=== PATIENT | female | born 1950 | race Caucasian/White ===

== ENCOUNTER 2023-07-26 09:26 | Inpatient (IN) | payer MEDICARE, OTHER ==
[~2023-07-26] VITALS: Ht 152.4 cm; Wt 48.0 kg
[2023-07-26] VITALS (22 sets, daily range): BP systolic 107–178; BP diastolic 48–130
[~2023-07-26 09:26] MED LIST: ALL DAY ALLG10 M1 PO; ASMANEX 120220 MCG IN; COMBIVENT IN; EVISTA60 MG PO; LOSARTAN POT25 MG PO; NEXIUM40 M1 PO; RHINOCORT; SINGULAIR PO
[2023-07-26 10:09] LABS: BASO% 0.2 % (0-3); HEMATOCRIT 38.7 % (37.0-47.0); HEMOGLOBIN 12.8 g/dl (12.0-16.0); IMMATURE GRANULOCYTES 0.2 % (0.0-5.0); LYMPH% 7.5 % (15-41); MEAN CELL VOLUME 90.8 fL CALC (80.0-100.0); MEAN CORPUSCULAR HGB CONC 33.1 g/dL CAL (32.0-36.0); MONO% 6.8 % (2-13); NEUT# 10.96 thou/uL (2.00-7.15); NEUT% 85.3 % (42-76); RED BLOOD COUNT 4.26 mill/uL (4.20-5.60)
[2023-07-26 10:18] LABS: ALBUMIN 4.1 g/dL (3.2-5.0); ALKALINE PHOSPHATASE 142 u/l (38-126); ANION GAP 15 (6-22 (CALC)); BILIRUBIN, TOTAL 0.6 mg/dL (0.02-1.3); BUN 7 mg/dL (8-23); BUN/CREATININE RATIO 13 (12-20 (CALC)); CARBON DIOXIDE 25 mmol/l (22-30); CHLORIDE 94 mmol/l (95-108); CREATININE 0.6 mg/dL (0.5-1.0); GFR FOR AFR.AMER. > 60 ML/MIN (>=60 (CALC)); GFR OTHER RACES > 60 ML/MIN (>=60 (CALC)); POTASSIUM 3.5 mmol/l (3.5-5.1); SGOT/AST 36 u/l (9-36); SODIUM 131 mmol/l (137-146); TOTAL PROTEIN 8.4 g/dL (6.3-8.2)
[2023-07-26 10:35] LABS: LIPASE 58 u/l (23-300)
[2023-07-26] MEDS ORDERED: LEXAPRO10 MG PO (10:36)
[2023-07-26 11:30] LABS: URINE BILIRUBIN - DIPSTICK Negative (NEGATIVE); URINE BLOOD DIPSTICK Trace-intact (NEGATIVE); URINE GLUCOSE - DIPSTICK Negative (NEGATIVE); URINE KETONE 15 mg/dL (NEGATIVE); URINE LEUK ESTERASE Trace (NEGATIVE); URINE NITRITE - DIPSTICK Negative (Negative); URINE PROTEIN - DIPSTICK 100 mg/dL (NEG-TRACE); URINE SPECIFIC GRAVITY 1.015
[2023-07-26 11:31] LABS: URINE COLOR Yellow
[2023-07-26 11:40] LABS: URINE BACTERIA RARE hpf; URINE HYALINE CAST FEW lpf (NONE-RARE); URINE MUCUS FEW hpf (NONE-FEW); URINE RBC 0-2 RBC/hpf (0-5); URINE SQUAMOUS EPITHELIAL CELL FEW EPI/hpf (0-FEW); URINE WBC 0-2 WBC/hpf (0-5)
[2023-07-27] VITALS (16 sets, daily range): BP systolic 114–167; BP diastolic 54–98
[2023-07-27 07:06] LABS: BASO% 0.2 % (0-3); EOS% 0.4 % (0-8); IMMATURE GRANULOCYTES 0.2 % (0.0-5.0); MEAN CELL VOLUME 92.2 fL CALC (80.0-100.0); MEAN CORPUSCULAR HGB 30.9 pG CALC (26.0-32.0); MEAN CORPUSCULAR HGB CONC 33.5 g/dL CAL (32.0-36.0); MONO% 6.9 % (2-13); NEUT# 6.8 thou/uL (2.00-7.15); NEUT% 81.3 % (42-76); RED BLOOD COUNT 3.46 mill/uL (4.20-5.60); RED CELL DISTRI WIDTH 14.3 % (11.5-15.5)
[2023-07-27 07:15] LABS: ALKALINE PHOSPHATASE 98 u/l (38-126); ANION GAP 11 (6-22 (CALC)); BUN 4 mg/dL (8-23); BUN/CREATININE RATIO 9 (12-20 (CALC)); CALCULATED LDLCHOLESTEROL 79 mg/dL (62-129 (CALC)); CARBON DIOXIDE 25 mmol/l (22-30); CHLORIDE 104 mmol/l (95-108); CHOLESTEROL HDL RATIO 4.6 (<4.4 (CALC)); CREATININE 0.5 mg/dL (0.5-1.0); GFR FOR AFR.AMER. > 60 ML/MIN (>=60 (CALC)); GFR OTHER RACES > 60 ML/MIN (>=60 (CALC)); HDL CHOLESTEROL 28 mg/dL (39.0-59.0); HEMATOCRIT 31.9 % (37.0-47.0); HEMOGLOBIN 10.7 g/dl (12.0-16.0); MAGNESIUM 1.9 mg/dL (1.6-2.3); POTASSIUM 3.5 mmol/l (3.5-5.1); SGOT/AST 18 u/l (9-36); SODIUM 136 mmol/l (137-146); TOTAL CHOLESTEROL 130 mg/dl (0-199); TOTAL TRIGLYCERIDES 113 mg/dl (0-149); VLDL CHOLESTROL 23 mg/dl (0-48 (CALC))
[2023-07-27 07:25] LABS: ALBUMIN 2.7 g/dL (3.2-5.0); BILIRUBIN, TOTAL 0.3 mg/dL (0.02-1.3); TOTAL PROTEIN 5.5 g/dL (6.3-8.2)
== END 2023-07-27 14:20 | disposition left against medical advice (07) | DRG 195 ==
LOC: ED 09:26 → ED-I 13:39 → ED 13:53 → ICU 13:54 → ED-I 13:54 → ICU 13:55
PROVIDERS: Family Medicine; ADMIT Student in an Organized Health Care Education/Training Program; ATTEND Student in an Organized Health Care Education/Training Program
DX: J18.9 Pneumonia, unspecified organism (principal); E86.0 Dehydration; E87.6 Hypokalemia; E83.42 Hypomagnesemia; Z20.822 Contact with and (suspected) exposure to COVID-19
CPT/HCPCS: J1650; J3475; Q9967